=== PATIENT | male | born 1960 | race Caucasian/White ===

== ENCOUNTER 2021-02-03 14:12 | Emergency (ER) | payer BC ==
[2021-02-03] MEDS ORDERED: ONDANSETRON 4 MG/2 ML VIAL IVPUSH ONE (14:50)
[2021-02-03] MEDS ORDERED: SODIUM CHLORIDE 0.9% 500 ML INFUS.BAG IV ONE (14:50)
[2021-02-03] MEDS ORDERED: morphine CARPU-JECT 4 MG/1 ML DISP.SYRIN IVPUSH ONE (14:51)
[2021-02-03] MEDS ORDERED: FAMOTIDINE 20 MG/50 ML IVPB 20 MG/50 ML MG IVPB ONE ×2 (14:54→15:03)
[2021-02-03] MEDS ORDERED: ONDANSETRON 4 MG/2 ML VIAL ONE (15:03)
[2021-02-03] MEDS ORDERED: morphine SULFATE 4 MG/ML VIAL ONE (15:03)
[2021-02-03 15:24] VITALS: BP 156/97; PULSE 81; TEMP 99.3; BMI 28.8
[2021-02-03 15:25] LABS: BASO % 2.9 % (0-2.0); EOS % 0.1 % (0-4.5); HEMATOCRIT 46.9 % (35.4-49); HEMOGLOBIN 16.3 GM/dl (11.7-16.9); LYMPH % 12.2 % (8-40); MCH 33.6 pg (25.7-33.7); MCHC 34.7 g/dl (32.0-35.9); MONO % 6.8 % (3.8-10.2); PLATELET COUNT 346 K/MM3 (134-434); RBC 4.84 M/mm3 (4.00-5.60); RDW 12.6 % (11.9-15.9); WHITE BLOOD COUNT 15.1 K/mm3 (4.0-10.8)
[2021-02-03 15:34] LABS: ALBUMIN 4.3 g/dl (3.4-5.0); ALK PHOS 78 U/L (45-117); ANION GAP 13 MMOL/L (8-16); BILIRUBIN,TOTAL 1.1 mg/dl (0.2-1); CALCIUM 9.1 mg/dl (8.5-10); CHLORIDE 95 mmol/L (98-107); CO2 23 mmol/L (21-32); GLUCOSE,RANDOM 183 mg/dl (74-106); SGOT/AST 43 U/L (15-37); SGPT/ALT 58 U/L (13-61); SODIUM 131 mmol/L (136-145); TOT PROT 7.5 g/dl (6.4-8.2)
[2021-02-03] MEDS ORDERED: MAG HYDROX/AL HYDROX/SIMETH 30 ML UNIT-DOSE CUP PO ONE (16:07)
[2021-02-03] MEDS ORDERED: METOCLOPRAMIDE HCL INJECTION 10 MG/2 ML VIAL IVPUSH ONE (16:07)
[2021-02-03] MEDS ORDERED: KCL 10 MEQ IVPB 10 MEQ/100 ML INFUS.BAG IVPB SCH (16:15)
[2021-02-03] MEDS ORDERED: POTASSIUM CHLORIDE TABS 20 MEQ TABLET.ER (FP) PO ONE ×2 (16:23→17:14)
[2021-02-03] MEDS ORDERED: METOCLOPRAMIDE HCL INJECTION 10 MG/2 ML VIAL ONE (16:23)
[2021-02-03] MEDS ORDERED: MAG HYDROX/AL HYDROX/SIMETH 30 ML UNIT-DOSE CUP ONE (16:24)
[2021-02-03 16:38] LABS: LIPASE 70 U/L (73-393)
== END 2021-02-03 19:13 | disposition home or self-care (01) ==
LOC: FER 14:12
PROC: 3E033GC Introduction of Other Therapeutic Substance into Peripheral Vein, Percutaneous Approach (ICD-10-PCS; principal; 2021-02-03)
PROC: 3E033GC Introduction of Other Therapeutic Substance into Peripheral Vein, Percutaneous Approach (ICD-10-PCS; 2021-02-03)
PROC: 3E033NZ Introduction of Analgesics, Hypnotics, Sedatives into Peripheral Vein, Percutaneous Approach (ICD-10-PCS; 2021-02-03)
PROC: 3E033GC Introduction of Other Therapeutic Substance into Peripheral Vein, Percutaneous Approach (ICD-10-PCS; 2021-02-03)
DX: R11.2 Nausea with vomiting, unspecified (principal); R19.7 Diarrhea, unspecified
CPT/HCPCS: 36415; 74176-TC; 80053; 82550; 82553; 83690; 84484; 85025; 93005; 99285-25

== ENCOUNTER 2021-02-05 19:09 | Emergency (ER) | payer BC ==
[2021-02-05 19:22] VITALS: BP 145/88; PULSE 84; TEMP 99.5; BMI 28.6
[2021-02-05] MEDS ORDERED: SODIUM CHLORIDE 1,000 ML IV STA (20:45)
[2021-02-05 20:53] LABS: BASO % 0.3 % (0-2.0); EOS % 0.4 % (0-4.5); HEMATOCRIT 43.2 % (35.4-49); HEMOGLOBIN 15.3 GM/dl (11.7-16.9); LYMPH % 15.6 % (8-40); MCH 34.2 pg (25.7-33.7); MCHC 35.5 g/dl (32.0-35.9); MEAN CELL VOLUME 96.4 fl (80-96); MEAN PLT VOLUME 8.2 fl (7.5-11.1); MONO % 8.8 % (3.8-10.2); NEUT % 74.9 % (42.8-82.8); PLATELET COUNT 317 K/MM3 (134-434); RBC 4.48 M/mm3 (4.00-5.60); RDW 12.5 % (11.9-15.9); WHITE BLOOD COUNT 17.3 K/mm3 (4.0-10.8)
[2021-02-05 21:20] LABS: ALBUMIN 3.8 g/dl (3.4-5.0); CALCIUM 8.3 mg/dl (8.5-10); TOT PROT 6.8 g/dl (6.4-8.2)
[2021-02-05] MEDS ORDERED: FAMOTIDINE 20 MG/50 ML IVPB 20 MG/50 ML MG IVPB ONE ×2 (23:48→23:51)
== END 2021-02-06 02:37 | disposition home or self-care (01) ==
LOC: FER 19:09
PROC: 3E033NZ Introduction of Analgesics, Hypnotics, Sedatives into Peripheral Vein, Percutaneous Approach (ICD-10-PCS; principal; 2021-02-05)
PROC: 3E0337Z Introduction of Electrolytic and Water Balance Substance into Peripheral Vein, Percutaneous Approach (ICD-10-PCS; 2021-02-05)
DX: K52.9 Noninfective gastroenteritis and colitis, unspecified (principal)
CPT/HCPCS: 36415; 74176-TC; 80053; 85025; 99285-25